=== PATIENT | male | born 1960 | race Caucasian/White ===

== ENCOUNTER → 2025-04-04 | Outpatient (CLI) | payer MEDICARE, SELFPAY ==
--- NOTE | 2025-04-04 06:35 | ECHOD_ITS ---
Reason For Study Reason For Study: CAD Procedure This was a 2D Doppler, Color Flow transthoracic echocardiogram. Exam performed in department. Left Ventricle Normal LV size. Left ventricular systolic function is normal. The rest of the wall segments are normal. Right Ventricle Normal RV size. Normal systolic function. Atria Normal left atrium. Normal right atrium. Mitral Valve Normal mitral valve. Tricuspid Valve Normal tricuspid valve. Aortic Valve Moderate focal aortic valve calcification. Peak aortic valve gradient 20 mmHg. Mean aortic valve gradient 10 mmHg. Mild aortic stenosis. Mild (1+) aortic valve insufficiency. Pulmonic Valve Normal pulmonic valve. Great Vessels Normal aortic root. The pulmonary artery is normal size. Normal inferior vena cava. Pericardium/Pleural No pericardial effusion. MMode/2D Measurements & Calculations LVIDd: 4.6 cm IVSd: 1.1 cm LVOT diam: 2.3 cm LVIDs: 2.6 cm LVPWd: 1.0 cm LVOT area: 4.1 cm2 RVDd: 2.8 cm FS: 43.0 % Ao root diam: 3.9 cm LAV(MOD-bp): 43.4 ml LVAd ap4: 30.2 cm2 LAV(MOD-bp) Indexed: 21.2 ml/m2 LVLd ap4: 8.2 cm LAV(MOD-sp2): 43.9 ml EDV(MOD-sp4): 93.3 ml LAV(MOD-sp4): 42.7 ml EDV(sp4-el): 94.9 ml LVAs ap4: 15.5 cm2 LVLs ap4: 7.3 cm ESV(MOD-sp4): 28.4 ml ESV(sp4-el): 27.8 ml EF(MOD-sp4): 69.6 % EF(sp4-el): 70.7 % LVAd ap2: 32.5 cm2 SV(MOD-sp4): 64.9 ml SV(MOD-sp2): 68.8 ml LVLd ap2: 8.6 cm SI(MOD-sp4): 31.7 ml/m2 SI(MOD-sp2): 33.6 ml/m2 EDV(MOD-sp2): 104.2 ml EDV(sp2-el): 104.0 ml LVAs ap2: 17.3 cm2 LVLs ap2: 7.4 cm ESV(MOD-sp2): 35.4 ml ESV(sp2-el): 34.3 ml EF(MOD-sp2): 66.0 % SV(sp4-el): 67.1 ml LA dimension(2D): 2.8 cm LA A4 area: 16.1 cm2 RA A4 area: 13.6 cm2 TAPSE: 2.6 cm Time Measurements MV dec time: 0.22 sec Doppler Measurements & Calculations MV E max chriss: 80.1 cm/sec Lat Peak E' Chriss: 9.5 cm/sec Med Peak E' Chriss: 9.2 cm/sec MV A max chriss: 94.8 cm/sec E/E' lat: 8.4 E/E' med: 8.7 MV E/A: 0.84 Ao V2 max: 222.1 cm/sec AI max chriss: 362.0 cm/sec MV dec slope: 368.4 cm/sec2 Ao max P.7 mmHg AI max P.1 mmHg Ao V2 mean: 150.0 cm/sec Ao mean P.1 mmHg AI dec slope: 156.3 cm/sec2 Ao V2 VTI: 48.0 cm AI P1/2t: 678.1 msec AV (velocity ratio): 0.66 CHELI(I,D): 2.7 cm2 CHELI(V,D): 2.4 cm2 LV V1 max: 131.1 cm/sec SV(LVOT): 130.9 ml PA V2 max: 88.8 cm/sec LV V1 max P.9 mmHg LV V1 mean P.1 mmHg LV V1 mean: 96.4 cm/sec LV V1 VTI: 31.8 cm ECHO/Echo Complete Interpretation Summary Normal LV size. Left ventricular systolic function is normal. Moderate focal aortic valve calcification. Mean aortic valve gradient 10 mmHg. Mild aortic stenosis. The global longitudinal strain is normal. The global longitudinal strain = -19. 8 % (normal). Normal left ventricular systolic function, ejection fraction 68 %. Ordering Physician: Sheyla Berg Referring Physician: Sheyla Berg Performed By: Margarita Hernandez RDCS
--- OUTSIDE RECORDS SUMMARY | 2025-04-04 06:37 | XMS RPT_ITS | CCD ---
Author Organization [facility] Inform ion Partnership [facility] Care Team Providers Care Cereal Popper Name Role Phone Otis BUCKLEY, Sheyla Referring Unavailable Otis BUCKLEY, Sheyla Attending Unavailable Otis BUCKLEY, Sheyla Primary Care Unavailable Problems Problem Classification Problem Date Documented Date Episodic/Chronic Coronary atherosclerosis and other heart disease (1 source) Atherosclerotic heart disease of [place] coronary artery without angina pectoris; Translations: [Atherosclerotic heart disease of [place] coronary artery without angina pectoris] Onset: 03-27-2025 Chronic Coronary atherosclerosis and other heart disease (1 source) Presence of coronary angioplasty implant and graft; Translations: [Presence of coronary angioplasty implant and graft] Onset: 03-27-2025 Episodic Disorders of lipid metabolism (1 source) Hyperlipidemia, unspecified; Translations: [Hyperlipidemia, unspecified] Onset: 03-27-2025 Chronic Analy-; endo-; and myocarditis; cardiomyopathy (except that caused by tuberculosis or sexually transmitted disease) (1 source) Cardiomyopathy due to drug and external agent; Translations: [Cardiomyopathy due to drug and external agent] Onset: 03-27-2025 Chronic Encounters Encounter Date Encounter Type Care Provider Facility Start: 04-04-2025 ambulatory Sheyla Berg NP Facility :[facility] Payers Date Payer Category Payer Self-pay Unknown [id number] Summary Purpose Family History No Family History Records Found Advance Directives No Advanced Directives Records Found Additional Source Comments (unrecognized sect ion and content) No Status Records Found INFORMATION SOURCE (unrecogn ized section and content) DATE CREATED AUTHOR 03/27/2025 [facility] FOR RECORDS PERTAINING TO PATIENTS WHO ARE OR HAVE BEEN ENROLLED IN A CHEMICAL DEPENDENCY/SUBSTANCEABUSE PROGRAM, SOME INFORMATION MAY BE OMITTED. This clinical summary was aggregated from multiple sources. Caution should be exercised in using it in the provision of clinical care. This summary normalizes information from multiple sources, and as a consequence, information in this document may materially change the coding, format and clinical context of patient data. In addition, data may be omitted in some cases. CLINICAL DECISIONS SHOULD BE BASED ON THE PRIMARY CLINICAL RECORDS. [facility]. provides no warranty or guarantee of the accuracy or completeness of information in this document.
== END | disposition home or self-care (01) ==
PROVIDERS: PCP Nurse Practitioner Family; Referring Provider Nurse Practitioner Family; Visit Provider Nurse Practitioner Family
DX: I25.10 Atherosclerotic heart disease of native coronary artery without angina pectoris (principal); E78.5 Hyperlipidemia, unspecified; I42.7 Cardiomyopathy due to drug and external agent; Z95.5 Presence of coronary angioplasty implant and graft
CPT/HCPCS: 93306